=== PATIENT | female | born 1995 | race Caucasian/White ===

== ENCOUNTER 2019-08-28 09:23 | Day surgery (SDC) | payer OTHER ==
[~2019-08-28] VITALS: Ht 170.2 cm; Wt 78.9 kg
--- NOTE | ~2019-08-28 | O ---
[address] [address] OPERATIVE REPORT Name: GENE ELMORE Room #: 150-3 [facility].#: [id number] Admission: 08/28/19 Attend Phys: Huy Dixon MD Discharge: Date of : 89 Report #: [id number] THIS REPORT FOR: cc: FAM - Family physician unknown FAM - Family physician unknown Huy Dixon MD ~ CC: HALLE unknown Huy Dixon DATE OF SERVICE: 08/28/2019 SERVICE: Orthopedics. FACILITY: [place]. SURGEON: Huy Dixon MD MANUFACTURING OPERATOR: Kavitha Diaz NP. PREOPERATIVE DIAGNOSES: 1. Left elbow stiffness. 2. Left elbow pain. POSTOPERATIVE DIAGNOSES: 1. Left elbow stiffness. 2. Left elbow pain. PROCEDURES: 1. Left elbow arthroscopy with synovectomy and lysis of adhesions. 2. Left elbow manipulation under anesthesia. COMPLICATIONS: None. DRAINS: None. SPECIMENS: None. FINDINGS: 1. Preoperative range of motion: 30-70 degrees (40 degrees total). 2. Postoperative range: 0-145 degrees (145 degrees total). 3. Intact articular cartilage. No evidence of intraarticular fracture or malunion. HISTORY: The patient is a 23-year-old female who sustained a fall in the fall of 2018 and subsequently developed a significant elbow stiffness that she was unable to resolve with conservative treatment and was ultimately indicated for [address] [address] OPERATIVE REPORT Name: GENE ELMORE Room #: 150-3 [facility]..#: [id number] Admission: 08/28/19 Attend Phys: Huy Dixon MD Discharge: Date of : 89 Report #: [id number] surgical treatment after she had failed conservative measures. Risks, benefits, alternatives, and indication of surgery discussed with her in detail. Risks include but not limited to pain, bleeding, infection, injury to nerves or blood vessels, persistent pain despite surgical intervention, failure of the procedure, need for further surgery including revision as well as complications related to anesthesia such as stroke, heart attack, pulmonary complications, thromboembolic disease and . We discussed recurrent stiffness as well. PROCEDURE IN DETAIL: After left upper extremity was correctly identified in the preoperative holding as operative extremity, the patient underwent placement of axillary nerve block by Anesthesia. She was then taken to the operating room where general anesthesia with LMA was induced without complication. She was turned into the lateral decubitus position with the left side up, right side down and padded appropriately. Prophylactic antibiotics were administered at appropriate time. Left arm preoperative range of motion, measurements were taken with a goniometer measuring 30-70 degrees. Time-out procedure was performed and then a manipulation under anesthesia was performed to extend the elbow and bend the elbow and an audible and palpable popping and release of adhesions was noted. Post-manipulation range of motion was 0-145 degrees and the elbow was stable without evidence of subluxation. The left arm was then prepped and draped in standard sterile fashion. Time-out procedure was performed. Esmarch was used. Tourniquet inflated to 250 mmHg and 30 mL of sterile saline was insufflated into the elbow. Posterior portal was established in the posterior compartment and then the posterolateral accessory working portal was established as well under direct arthroscopic visualization. The shaver was used to resect the adhesions in the posterior aspect of the elbow. The olecranon was normal. There were adhesions in the medial and lateral gutter and extensive lateral lysis of adhesions was performed to allow visualization of the radiocapitellar joint and the proximal radial ulnar joint. Access was facilitated by a soft spot portal, which was placed under direct arthroscopic visualization. The scope and shaver were passed into the medial gutter as well and meticulous care was taken to avoid any injury to the ulnar nerve. A limited amount of adhesions that were fixed to the humerus itself were resected with the shaver in a safe fashion. The proximal anteromedial portal was then cannulated and then the proximal anterolateral portal was established under direct visualization. The avulsed proximal capsule was visualized on the edges, but was still intact centrally and so a shaver and a biter were used to perform an anterior capsule release. The radiocapitellar joint, the annular ligament and the ulnohumeral ligaments were all healthy and intact. Scope was then placed laterally and working portal made medially and in the anterior capsule release was completed. There was synovitis in the anterior aspect of the shoulder as well as the posterior, but primarily this was located anteriorly and the shaver was used to perform partial synovectomy in an extensive fashion. After this was completed, the arthroscopic [address] [address] OPERATIVE REPORT Name: GENE ELMORE Room #: 150-3 [facility] [place]ael#: [id number] Admission: 08/28/19 Attend Phys: Huy Dixon MD Discharge: Date of : 89 Report #: [id number] effusion was drained, the instruments were removed prior to. The portals were closed with Monocryl and then a sterile dressing was applied followed by a PolarCare device. She will be allowed early range of motion and will begin physical therapy next week. She has a dynamic flexion and extension splint to facilitate maintenance of the range of motion recovery that we obtained today in the operating room. By: [id number] [id number] Huy Dixon MD /nt
[~2019-08-28 09:23] MED LIST: LORCET 5-325 M1 EACH PO; ULTRAM50 MG PO
[2019-08-28 10:45] VITALS: BP 126/85
[2019-08-28 12:41] VITALS: BP 126/85
[2019-08-28 12:43] VITALS: BP 126/85
== END 2019-08-28 12:04 | disposition home or self-care (01) ==
LOC: TBA 09:23 → OR 09:23
PROVIDERS: ATTEND Orthopaedic Surgery Sports Medicine
DX: M25.622 Stiffness of left elbow, not elsewhere classified (principal); M25.522 Pain in left elbow; Z98.890 Other specified postprocedural states; Z79.899 Other long term (current) drug therapy; Z85.830 Personal history of malignant neoplasm of bone; Z91.040 Latex allergy status; Z11.59 Encounter for screening for other viral diseases
CPT/HCPCS: 50010; 50101; 50172; 50386; 51038; 51320; 52001; 56527; 57091; 57103; 57178; 62110; 62900; 64039; 64043; 65060; 70005

== ENCOUNTER → 2019-11-15 | Outpatient (CLI) | payer OTHER | LOC: LAB 14:31 | PROVIDERS: ATTEND Anesthesiology | DX: Z01.812 Encounter for preprocedural laboratory examination (principal); Z20.828 Contact with and (suspected) exposure to other viral communicable diseases ==